=== PATIENT | male | born 2000 | race African-American/Black ===

== ENCOUNTER 2022-04-22 17:15 | Inpatient (IN) ==
[2022-04-22] MEDS ORDERED: SODIUM CHLORIDE 0.9% 1000ML 1,000 ML IV ONE (18:29)
--- NOTE | 2022-04-22 18:29 | Emergency Department Note ---
Impression & Plan Pancreatitis, acute, Abdominal pain ED Provider Note NAME: NAREN COOPER AGE: 22 SEX: M : 2000 ARRIVES VIA: Walk-In INFORMANT: Patient ED PROVIDER(S): Jesus Cristina DO CHIEF COMPLAINT: Epigastric abdominal pain HPI: Patient is a 22-year-old male who presents the ER for epigastric abdominal pain. This been going on for the past 7 days. He notes it is worse after eating. It ranges from a 5-7. Currently a 5 out of 10. Notes it is worse with eating or drinking. No remitting factors. No fevers. No headaches or change in vision. No dysuria, urgency, or frequency. No other exacerbating or remitting factors. He notes has been having some loose stools which have been going on for the past week as well. No previous abdominal surgeries. ROS: See above HPI for pertinent positives & negatives. A total of 10 systems reviewed and were otherwise negative. PAST MEDICAL HISTORY:See Below PAST SURGICAL HISTORY:See Below FAMILY HISTORY:See Below SOCIAL HISTORY:See Below HOME MEDICATIONS:See Below ALLERGIES:See Below VITALS:See Below PHYSICAL EXAMINATION: GENERAL: Sitting up in bed, alert, well appearing, mild distress EYE EXAM: normal conjunctiva. PERRL and EOM's grossly intact. OROPHARYNX: no exudate, no erythema, lips, buccal mucosa, and tongue normal and mucous membranes are moist NECK: supple, no nuchal rigidity, no adenopathy, non-tender LUNGS: Clear to auscultation. Normal chest wall mechanics HEART: no murmurs, S1 normal and S2 normal ABDOMEN: abdomen soft, non-tender, normo-active bowel sounds, no masses, no rebound or guarding. BACK: Back is symmetrical on inspection and there is no deformity, no midline tenderness, no CVA tenderness. SKIN: no rashes and no bruising UPPER EXTREMITIES: upper extremities are grossly normal. LOWER EXTREMITIES: No pitting edema. NEURO EXAM: Normal sensorium, cranial nerves II-XII grossly intact, normal speech, no gross weakness of arms, no gross weakness of legs. MEDICAL DECISION MAKING: Patient is a 22-year-old male who presents ER for abdominal pain associate with nausea and intermittent vomiting with eating and drinking. IV was established blood work was obtained. Labs show no significant leukocytosis or anemia. BMP along with LFTs bilirubin was unremarkable. Lipase was significantly elevated at 1400. COVID was negative. Ultrasound the gallbladder was unremarkable. He was given IV fluids Zofran and morphine. He was updated bedside. Discussed with hospitalist for further evaluation Dr. Luz Hickey. Triage Nursing notes reviewed. Limited review of prior medical records performed Vital Signs: reviewed and remarkable for no significant abnormalities Differential diagnosis: Differential diagnoses includes but is not limited to gastritis, peptic ulcer disease, GERD, gallbladder disease, pancreatitis, small bowel obstruction, acute coronary syndrome, pericarditis, ischemic bowel, irritable bowel disease, irritable bowel syndrome, appendicitis, diverticulitis, malignancy, hernia, urinary tract infection, torsion, /ectopic (if female), perforation, trauma, infectious. ER treatment provided: See below Diagnostics interpreted by me: ECG: none Cardiac Monitoring: An order was placed for continuous cardiac monitoring. The monitor shows a rate of 70 with sinus rhythm. Laboratory studies: As stated above and show below. Imaging studies: Ultrasound gallbladder and right upper quadrant was unremarkable Consultation(s): Discussed with the hospitalist for further evaluation Procedures: none Critical Care: None Past Med/Surg History Medical History (Updated 04/23/22 @ 00:38 by Jesus Cristina DO) Pancreatitis, acute Surgical History H/O nasal septoplasty History of mandibular surgery S/P LASIK surgery Family History Father Nephrolithiasis Uncle Diabetes Social History Smoking Status: Never smoker Hx Alcohol Use: No marital status: Single Feels Safe at Home: Yes Allergies Allergies Allergy/AdvReac Type Severity Reaction Status Date / Time clindamycin Allergy Itching Verified 04/22/22 22:38 shrimp Allergy throat Verified 04/22/22 22:38 swelling Home Meds Home Medications Medication Instructions Recorded Confirmed melatonin 1 mg tablet 0 mg PO HS PRN Sleep 05/02/21 04/22/22 Fat Burner Tab 1 tab PO DAILY 04/22/22 04/22/22 Hdh 2 tab PO QAM 04/22/22 04/22/22 Pre Workout Powder 1 ea PO DIRECTED PRN .Before 04/22/22 04/22/22 workouts creatine monohydrate 1 ea PO DIRECTED PRN BEFORE 04/22/22 04/22/22 WORKOUTS Results & Data (ED) Vital Signs Vital Signs - 24 hr 04/22/22 17:26 04/22/22 20:23 04/22/22 20:29 Temperature 37.0 C Temperature Source Oral Pulse Rate 75 74 Pulse Rate [Right Finger] 71 Pulse Rhythm Regular Pulse Rhythm [Right Finger] Regular Pulse Strength Normal Respiratory Rate 18 16 13 Respiratory Effort / Characteristics Non-Labored Spontaneous Respiratory Depth Normal Normal Respiratory Pattern Regular Blood Pressure 144/78 H Blood Pressure [Right Arm] 135/63 Blood Pressure Mean 100 Blood Pressure Mean [Right Arm] 87 Blood Pressure Position Sitting Pulse Oximetry 98 98 Oxygen Delivery Method Room Air Room Air Sepsis Recent Fever Within 48 Hours No Sepsis New/Unexplained Change in Mental Status No Sepsis Action Taken by Nursing No Action Required 04/22/22 20:30 04/22/22 20:30 04/22/22 21:00 Temperature Temperature Source Pulse Rate 75 70 Pulse Rate [Right Finger] Pulse Rhythm Pulse Rhythm [Right Finger] Pulse Strength Respiratory Rate 18 25 H Respiratory Effort / Characteristics Respiratory Depth Respiratory Pattern Blood Pressure 111/82 Blood Pressure [Right Arm] Blood Pressure Mean 91 Blood Pressure Mean [Right Arm] Blood Pressure Position Pulse Oximetry Oxygen Delivery Method Sepsis Recent Fever Within 48 Hours Sepsis New/Unexplained Change in Mental Status Sepsis Action Taken by Nursing 04/22/22 21:01 04/22/22 21:01 04/22/22 21:30 Temperature Temperature Source Pulse Rate 60 Pulse Rate [Right Finger] Pulse Rhythm Pulse Rhythm [Right Finger] Pulse Strength Respiratory Rate 25 H Respiratory Effort / Characteristics Respiratory Depth Respiratory Pattern Blood Pressure 129/68 113/60 Blood Pressure [Right Arm] Blood Pressure Mean 88 77 Blood Pressure Mean [Right Arm] Blood Pressure Position Pulse Oximetry Oxygen Delivery Method Sepsis Recent Fever Within 48 Hours Sepsis New/Unexplained Change in Mental Status Sepsis Action Taken by Nursing 04/22/22 21:30 Temperature Temperature Source Pulse Rate 66 Pulse Rate [Right Finger] Pulse Rhythm Pulse Rhythm [Right Finger] Pulse Strength Respiratory Rate 11 L Respiratory Effort / Characteristics Respiratory Depth Respiratory Pattern Blood Pressure Blood Pressure [Right Arm] Blood Pressure Mean Blood Pressure Mean [Right Arm] Blood Pressure Position Pulse Oximetry Oxygen Delivery Method Sepsis Recent Fever Within 48 Hours Sepsis New/Unexplained Change in Mental Status Sepsis Action Taken by Nursing Laboratory Data Result diagrams: 04/22/22 18:25 04/22/22 18:25 Lab Results 04/22/22 04/22/22 04/22/22 Range/Units 18:25 18:25 21:33 WBC 5.32 (4.8-10.8) K/ul RBC 5.22 (4.63-6.08) M/uL Hgb 15.4 (14.0-18.0) g/dl Hct 47.1 (40.1-51.0) % MCV 90.2 (80.0-100.0) fL MCH 29.5 (25.0-34.0) pg MCHC 32.7 (32.0-36.0) g/dL RDW Std Deviation 44.6 (36.4-46.3) fL RDW Coeff of Melita 13.4 (11.5-14.5) % Plt Count 254 (130-400) K/uL MPV 9.0 L (9.4-12.4) fL Immature Gran % (Auto) 0.2 % Neut % (Auto) 58.0 % Lymph % (Auto) 25.9 % [place] % (Auto) 8.5 % Eos % (Auto) 6.6 % Baso % (Auto) 0.8 % Neut # (Auto) 3.09 (1.4-6.5) K/uL Lymph # (Auto) 1.38 (1.2-3.4) K/uL [place] # (Auto) 0.45 (0.24-0.82) K/uL Eos # (Auto) 0.35 (0-0.50) K/uL Baso # (Auto) 0.04 (0-0.2) K/uL Immature Gran # (Auto) 0.01 (0.00-0.02) K/uL Sodium 139 (136-145) mmol/L Potassium 3.9 (3.5-5.1) mmol/L Chloride 105 (98-107) mmol/L Carbon Dioxide 28 (21-32) mmol/L Anion Gap 6 (3-11) BUN 15 (6-23) mg/dl Creatinine 0.93 (0.6-1.4) mg/dl Est Cr Clr Drug Dosing 117.5 ml/min Est GFR ( Amer) 135.5 ml/min Est GFR (Non-Af Amer) 116.9 ml/min BUN/Creatinine Ratio 16.1 (10-20) Glucose 83 (70-99(Fasting)) mg/dl Calcium 9.0 (8.5-10.1) mg/dl Total Bilirubin 0.4 (0.2-1.0) mg/dl AST 15 (13-39) U/L ALT 12 (7-52) U/L Alkaline Phosphatase 68 (34-104) U/L Total Protein 6.8 (6.0-8.3) gm/dl Albumin 4.2 (3.4-5.0) gm/dl Globulin 2.6 (2.5-4.0) gm/dl Albumin/Globulin Ratio 1.6 (0.9-2) Lipase 1376 H (11-82) U/L SARS-CoV-2, RNA, NAAT NEGATIVE (NEGATIVE) Administered Medications Lactated Ringer's (Lr) 1,000 mls @ 250 mls/hr IV .Q4H EVRONICA Stop: 05/22/22 23:51 Last Admin: 04/23/22 00:07 Dose: 250 mls/hr Documented By: YENI Discontinued Medications Sodium Chloride (Nss 1000ml) 1,000 mls @ 999 mls/hr IV .Q1H1M ONE Stop: 04/22/22 19:29 Last Infusion: 04/22/22 21:51 Dose: 0 mls/hr Documented By: Admin: 04/22/22 19:31 Dose: 999 mls/hr Documented By: DAYNE Morphine Sulfate (Morphine Sulfate 10 Mg/Ml Carp/Vial) 6 mg IV NOW STA Stop: 04/22/22 21:13 Last Admin: 04/22/22 21:29 Dose: 6 mg Documented By: DAYNE Ondansetron HCl (Ondansetron Inj 2 Mg/Ml 2 Ml Vial) 4 mg IV NOW STA Stop: 04/22/22 21:13 Last Admin: 04/22/22 22:55 Dose: Not Given Documented By: DAYNE Discharge Plan Visit Data Chief Complaint: Abdominal Pain Stated Complaint: ABDOMINAL PAIN ED Provider: Jesus Cristina Discharge Problem: Pancreatitis, acute, Abdominal pain Patient Disposition: Admitted As Inpatient Discharge Instructions Interventions: ED Discharge Assessment Last Done: 04/22/22 22:52
[2022-04-22 18:35] LABS: Basophils # (auto) 0.04 K/uL (0-0.2); Basophils % (auto) 0.8 %; Eosinophils # (auto) 0.35 K/uL (0-0.50); Eosinophils % (auto) 6.6 %; Hematocrit (blood only) 47.1 % (40.1-51.0); Hemoglobin 15.4 g/dl (14.0-18.0); Immature Granulocytes # (auto) 0.01 K/uL (0.00-0.02); Immature Granulocytes % (auto) 0.2 %; Lymphocytes # (auto) 1.38 K/uL (1.2-3.4); Lymphocytes % (auto) 25.9 %; Mean Corpuscular Hemoglobin 29.5 pg (25.0-34.0); Mean Corpuscular Hgb Conc 32.7 g/dL (32.0-36.0); Mean Corpuscular Volume 90.2 fL (80.0-100.0); Monocytes # (auto) 0.45 K/uL (0.24-0.82); Monocytes % (auto) 8.5 %; Neutrophils # (auto) 3.09 K/uL (1.4-6.5); Platelet Count 254 K/uL (130-400); RDW Coefficient of Variation 13.4 % (11.5-14.5); RDW Standard Deviation 44.6 fL (36.4-46.3); Red Blood Count 5.22 M/uL (4.63-6.08); White Blood Count 5.32 K/ul (4.8-10.8)
[2022-04-22 18:52] LABS: BUN Creatinine Ratio 16.1 (10-20); Creatinine Clr Calc Pharmacy 117.5 ml/min; Est GFR (African American) 135.5 ml/min; Est GFR (Non-African American) 116.9 ml/min; Potassium 3.9 mmol/L (3.5-5.1)
[2022-04-22 18:53] LABS: Albumin Globulin Ratio 1.6 (0.9-2); Albumin Level 4.2 gm/dl (3.4-5.0); Bilirubin,Total 0.4 mg/dl (0.2-1.0); Globulin 2.6 gm/dl (2.5-4.0); Total Protein 6.8 gm/dl (6.0-8.3)
[2022-04-22] MEDS ORDERED: MoRPHine SULFATE 10 MG/ML CARP/VIAL IV STA (21:12)
[2022-04-22] MEDS ORDERED: ONDANSETRON INJ 2 MG/ML 2 ML VIAL IV STA (21:12)
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
[2022-04-22] MEDS ORDERED: ACETAMINOPHEN 1,000 MG/100 ML VIAL IV PRN (23:52)
[2022-04-22] MEDS ORDERED: MoRPHine SULFATE 4 MG/ML 1 ML CARP\\VIAL IV PRN (23:52)
[2022-04-22] MEDS ORDERED: ONDANSETRON INJ 2 MG/ML 2 ML VIAL IV PRN (23:52)
[2022-04-22] MEDS ORDERED: MoRPHine SULFATE 2 MG/ML CARP IV PRN (23:52)
[2022-04-23] MEDS: LACTATED RINGER'S 1,000 ML IV SCH ×6 (00:07→19:00)
--- NOTE | 2022-04-23 02:48 | Billing Data ---
Date of Service April 22, 2022 Coding Level of Care Code 28815 Initial Inpt Care Lvl 2
[2022-04-23 07:05] LABS: Basophils # (auto) 0.08 K/uL (0-0.2); Basophils % (auto) 1.1 %; Eosinophils # (auto) 1.65 K/uL (0-0.50); Eosinophils % (auto) 22.3 %; Hemoglobin 13.4 g/dl (14.0-18.0); Immature Granulocytes # (auto) 0.02 K/uL (0.00-0.02); Immature Granulocytes % (auto) 0.3 %; Lymphocytes # (auto) 3.51 K/uL (1.2-3.4); Lymphocytes % (auto) 47.4 %; Mean Corpuscular Hemoglobin 29.5 pg (25.0-34.0); Mean Corpuscular Hgb Conc 32.7 g/dL (32.0-36.0); Mean Corpuscular Volume 90.1 fL (80.0-100.0); Mean Platelet Volume 9.4 fL (9.4-12.4); Monocytes # (auto) 0.44 K/uL (0.24-0.82); Monocytes % (auto) 5.9 %; Neutrophils # (auto) 1.71 K/uL (1.4-6.5); Platelet Count 224 K/uL (130-400); RDW Coefficient of Variation 13.6 % (11.5-14.5); RDW Standard Deviation 44.9 fL (36.4-46.3); Red Blood Count 4.55 M/uL (4.63-6.08); White Blood Count 7.41 K/ul (4.8-10.8)
[2022-04-23 07:34] LABS: Calcium 8.5 mg/dl (8.5-10.1); Chol HDL Ratio 2.3 (0-5); Est GFR (African American) 143.7 ml/min; Potassium 4.2 mmol/L (3.5-5.1)
[2022-04-23] MEDS: NICOTINE 14 MG/24 HR PATCH TD SCH (08:01)
--- NOTE | 2022-04-23 09:57 | Ultrasound Report ---
US gallbladder HISTORY: 22 years-old Male epigastric abd pain acute epigastric abdominal pain COMPARISON: None TECHNIQUE: Multiple real-time sonographic images of the abdominal right upper quadrant were obtained assessing grayscale appearance and color flow FINDINGS: The visualized pancreas is unremarkable. Hepatopedal flow within the main portal vein. The liver jãoo ures 18.3 cm in length. Unremarkable gallbladder. No shadowing cholelithiasis, wall thickening or per icholecystic fluid. Normal common bile duct, 2 mm. Negative sonographic Anderson's sign. The imaged rig ht kidney is unremarkable without hydronephrosis. IMPRESSION: Unremarkable right upper quadrant abdominal ultrasound. ACT 112: Negative or not required by law. The above report was generated using voice recognition software. It may contain grammatical, syntax o r spelling errors. Electronically signed by: Ranjit Nick M.D. 04/23/2022 9:56 AM
[2022-04-23 15:12] LABS: Appearance Urine Clear (Clear); Bilirubin Urine Negative (Negative); Blood Urine Negative (Negative); Color Urine Yellow; Glucose Urine UA Negative (Negative); Ketones Urine Negative (Negative); Leukocyte Esterase Urine Negative (Negative); Nitrite Urine Negative (Negative); Protein Urine Negative (Negative); Specific Gravity Urine 1.008 (1.000-1.030); Urobilinogen Urine Negative (Negative); pH Urine 7.5 (4.5-7.5)
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
[2022-04-23] MEDS ORDERED: MELATONIN 3 MG TAB PO PRN (23:49)
[2022-04-24] MEDS: LACTATED RINGER'S 1,000 ML IV SCH ×4 (00:03→12:50)
[2022-04-24] MEDS ORDERED: MELATONIN 3 MG TAB PO ONE (01:02)
[2022-04-24 06:55] LABS: Basophils # (auto) 0.04 K/uL (0-0.2); Basophils % (auto) 0.8 %; Eosinophils % (auto) 18.9 %; Hematocrit (blood only) 41.1 % (40.1-51.0); Immature Granulocytes # (auto) 0.01 K/uL (0.00-0.02); Immature Granulocytes % (auto) 0.2 %; Lymphocytes # (auto) 2.57 K/uL (1.2-3.4); Lymphocytes % (auto) 48.5 %; Mean Corpuscular Hgb Conc 34.1 g/dL (32.0-36.0); Mean Corpuscular Volume 88.2 fL (80.0-100.0); Mean Platelet Volume 9.4 fL (9.4-12.4); Monocytes # (auto) 0.33 K/uL (0.24-0.82); Monocytes % (auto) 6.2 %; Neutrophils # (auto) 1.35 K/uL (1.4-6.5); Neutrophils % (auto) 25.4 %; Platelet Count 216 K/uL (130-400); RDW Coefficient of Variation 13.3 % (11.5-14.5); RDW Standard Deviation 43.1 fL (36.4-46.3); Red Blood Count 4.66 M/uL (4.63-6.08)
[2022-04-24 07:56] LABS: BUN Creatinine Ratio 9.3 (10-20); Calcium 8.5 mg/dl (8.5-10.1); Est GFR (African American) 143.7 ml/min; Potassium 3.9 mmol/L (3.5-5.1)
[2022-04-24] MEDS: NICOTINE 14 MG/24 HR PATCH TD SCH (08:06)
[2022-04-24] MEDS ORDERED: MELATONIN 3 MG TAB PO PRN (09:00)
[2022-04-24] MEDS ORDERED: ACETAMINOPHEN 500 MG TAB PO PRN (12:06)
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
--- NOTE | 2022-04-24 19:23 | Billing Data ---
Date of Service April 24, 2022 Coding Level of Care Code D/C DAY MANAGEMENT <30 MINS
== END 2022-04-24 17:34 | disposition home or self-care (01) | DRG 440 ==
LOC: ED 17:15 → 2N 21:47 → SUATTDRO 21:47 → 2N 22:52
DX: R74.8 Abnormal levels of other serum enzymes; Z72.89 Other problems related to lifestyle; Z91.013 Allergy to seafood; Z88.1 Allergy status to other antibiotic agents; K85.20 Alcohol induced acute pancreatitis without necrosis or infection; F17.200 Nicotine dependence, unspecified, uncomplicated